=== PATIENT | male | born 1995 | race Caucasian/White ===

== ENCOUNTER 2017-09-08 12:35 | Emergency (ER) | payer BC ==
[~2017-09-08] VITALS: Ht 167.6 cm; Wt 68.0 kg
[2017-09-08 12:35] VITALS: BP_SYST 112
[2017-09-08 13:20] VITALS: BP_SYST 116
== END 2017-09-08 13:20 | disposition home or self-care (01) ==
LOC: SED 12:35
DX: G43.909 Migraine, unspecified, not intractable, without status migrainosus (principal); R55 Syncope and collapse; K21.9 Gastro-esophageal reflux disease without esophagitis; Z90.13 Acquired absence of bilateral breasts and nipples
CPT/HCPCS: 99283

== ENCOUNTER 2017-09-18 23:02 | Emergency (ER) | payer BC ==
[~2017-09-18] VITALS: Ht 162.6 cm; Wt 67.1 kg
[2017-09-18 23:10] VITALS: BP_SYST 125
[2017-09-19] MEDS ORDERED: SUMAtriptan SUCCINATE 50 MG TABLET PO ONE
[2017-09-19] MEDS ORDERED: SUMAtriptan SUCCINATE 50 MG TABLET ONE (00:15)
[2017-09-19] MEDS ORDERED: DIPHENHYDRAMINE INJ 50 MG/ML VIAL IVP ONE (01:00)
[2017-09-19] MEDS ORDERED: NACL 0.9% 1,000 ML IV ONE (01:00)
[2017-09-19] MEDS ORDERED: KETOROLAC TROMETHAMINE 30 MG VIAL IVP ONE (01:00)
[2017-09-19 01:30] VITALS: BP_SYST 118
[2017-09-19] MEDS ORDERED: ONDANSETRON HCL 4 MG/2 ML VIAL IVP ONE (01:45)
== END 2017-09-19 02:05 | disposition home or self-care (01) ==
LOC: SED 23:02
DX: G43.909 Migraine, unspecified, not intractable, without status migrainosus (principal); K21.9 Gastro-esophageal reflux disease without esophagitis
CPT/HCPCS: 70450; 96361; 96374; 96375; 99284; J1200; J1885; J2405; J7030